=== PATIENT | female | born 1950 | race Caucasian/White ===

== ENCOUNTER → 2016-08-24 | Outpatient (CLI) | payer OTHER ==
[2016-08-24 17:07] LABS: ALT/SGPT 38 U/L (12-78); AST/SGOT 29 U/L (15-37); BLOOD UREA NITROGEN 15 mg/dl (7-18); BUN/CREATININE RATIO 15.4 (10-20); CALCIUM 10.2 mg/dl (8.5-10.1); CARBON DIOXIDE 31 mmol/L (21-32); CHLORIDE 106 mmol/L (98-107); CHOLESTEROL 166 mg/dl (0-200); CREATININE 0.95 mg/dl (0.60-1.20); GLUCOSE 88 mg/dl (70-99); SODIUM 144 mmol/L (136-145)
[2016-08-24 17:18] LABS: ALB/GLOB RATIO 1.1 (0.9-2); ALKALINE PHOSPHATASE 70 U/L (45-117); CHOLESTEROL/HDL RATIO 3.5; HDL CHOLESTEROL 48 mg/dl; LDL CHOLESTEROL CALCULATED 85 mg/dl; TRIGLYCERIDES 166 mg/dl (0-150); VERY LOW DENSITY LIPOPROT CALC 33 mg/dl
[2016-08-25 05:49] LABS: ESTIMATED AVERAGE GLUCOSE 123 mg/dl; HA1C FLAG Normal (Normal)
== END | disposition home or self-care (01) ==
LOC: C.LABBFT 11:40
PROVIDERS: ATTEND Internal Medicine
DX: Z00.00 Encounter for general adult medical examination without abnormal findings (principal); I10 Essential (primary) hypertension; E78.00 Pure hypercholesterolemia, unspecified; Z11.59 Encounter for screening for other viral diseases; R73.01 Impaired fasting glucose

== ENCOUNTER → 2016-12-26 | Outpatient (CLI) | payer OTHER ==
--- NOTE | 2016-12-26 12:24 | MAMMOGRAPHY REPORT ---
BILATERAL DIGITAL SCREENING MAMMOGRAM TOMOSYNTHESIS WITH CAD: 12/26/2016 CLINICAL HISTORY: Routine screening. Patient has no complaints. TECHNIQUE: Breast tomosynthesis in addition to standard 2D mammography was performed. Current study was also evaluated with a Computer Aided Detection (CAD) system. COMPARISON: Comparison is made to exams dated: 12/23/2015 mammogram, 12/17/2014 mammogram, 12/14/2013 ma mmogram, 12/04/2012 mammogram, 11/28/2011 mammogram, and 11/23/2010 mammogram - [facility]. BREAST COMPOSITION: There are scattered areas of fibroglandular density in both breasts. FINDINGS: No suspicious masses, calcifications, or areas of architectural distortion are noted in ei ther breast. There has been no significant interval change compared to prior exams. A few small circ umscribed benign-appearing masses are noted bilaterally, most prominent in the left breast, which are mildly fluctuating compared to prior exams and likely represent cysts. IMPRESSION: ACR BI-RADS CATEGORY 2: BENIGN There is no mammographic evidence of malignancy. A 1 year screening mammogram is recommended. The pa tient will receive written notification of the results. Approximately 10% of breast cancers are not detected with mammography. A negative mammographic report should not delay biopsy if a clinically suggestive mass is present. Karen Bazan M.D. /:12/26/2016 07:56:23 Home Care Consultant: Sendy Talley [facility] letter sent: Normal 1/2 BI-RADS Code: ACR BI-RADS Category 2: Benign
== END | disposition home or self-care (01) ==
LOC: C.MAMM 07:19
PROVIDERS: ATTEND Internal Medicine
DX: Z12.31 Encounter for screening mammogram for malignant neoplasm of breast (principal)

== ENCOUNTER → 2017-03-06 | Outpatient (CLI) | payer OTHER ==
[2017-03-06 17:43] LABS: BLOOD UREA NITROGEN 20 mg/dl (7-18); BUN/CREATININE RATIO 20.3 (10-20); CALCIUM 10.6 mg/dl (8.5-10.1); CARBON DIOXIDE 30 mmol/L (21-32); CHLORIDE 106 mmol/L (98-107); GLUCOSE 94 mg/dl (70-99); POTASSIUM 4.3 mmol/L (3.5-5.1); SODIUM 140 mmol/L (136-145)
[2017-03-07 05:56] LABS: ESTIMATED AVERAGE GLUCOSE 120 mg/dl; HA1C FLAG Normal (Normal)
== END | disposition home or self-care (01) ==
LOC: C.LABBFT 11:51
PROVIDERS: ATTEND Internal Medicine
DX: Z00.00 Encounter for general adult medical examination without abnormal findings (principal); I10 Essential (primary) hypertension; R73.01 Impaired fasting glucose

== ENCOUNTER → 2018-01-02 | Outpatient (CLI) | payer OTHER ==
--- NOTE | 2018-01-02 15:43 | MAMMOGRAPHY REPORT ---
BILATERAL DIGITAL SCREENING MAMMOGRAM TOMOSYNTHESIS WITH CAD: 01/02/2018 CLINICAL HISTORY: Routine screening. Patient has no complaints. TECHNIQUE: The study was acquired using full field digital technology and interpreted from soft copy. Breast tomosynthesis in addition to standard 2D mammography was performed. Current study was also ev aluated with a Computer Aided Detection (CAD) system. COMPARISON: Comparison is made to exams dated: 12/26/2016 mammogram, 12/23/2015 mammogram, 12/17/2014 mario mogram, 12/04/2012 mammogram, 11/28/2011 mammogram, and 11/23/2010 mammogram - [facility] er. BREAST COMPOSITION: There are scattered areas of fibroglandular density in both breasts. FINDINGS: No suspicious masses, calcifications, or areas of architectural distortion are noted in either breast . There has been no significant interval change compared to prior exams. IMPRESSION: ACR BI-RADS CATEGORY 1: NEGATIVE There is no mammographic evidence of malignancy. A 1 year screening mammogram is recommended.( [id number]) The patient will receive written notification of the results. Some breast cancers are not detected with mammography. A negative mammographic report should not jamarcus y biopsy if a clinically suggestive mass is present. Karen Bazan M.D. ah/:01/02/2018 07:41:21 Multimedia Manager: RT Ulysses(Kade)(M), [facility] letter sent: Normal 1/2 BI-RADS Code: ACR BI-RADS Category 1: Negative
== END | disposition home or self-care (01) ==
LOC: C.MAMM 07:26
PROVIDERS: ATTEND Internal Medicine
DX: Z12.31 Encounter for screening mammogram for malignant neoplasm of breast (principal)

== ENCOUNTER 2022-11-09 23:04 | Observation (INO) ==
[2022-11-10] MEDS ORDERED: KETOROLAC 30 MG/ML VIAL IV ONE (00:08)
[2022-11-10 00:30] LABS: Albumin Globulin Ratio 1.5 (0.9-2); Albumin Level 4.3 gm/dl (3.4-5.0); BUN Creatinine Ratio 19.3 (10-20); Bilirubin,Total 0.7 mg/dl (0.2-1.0); Calcium 10.8 mg/dl (8.6-10.3); Creatinine Clr Calc Pharmacy 61.1 ml/min; Est GFR (African American) 76.1 ml/min; Est GFR (Non-African American) 65.6 ml/min; Globulin 2.9 gm/dl (2.5-4.0); Potassium 3.4 mmol/L (3.5-5.1); Total Protein 7.2 gm/dl (6.0-8.3)
[2022-11-10 00:33] LABS: Basophils # (auto) 0.06 K/uL (0-0.2); Basophils % (auto) 0.7 %; Eosinophils # (auto) 0.83 K/uL (0-0.50); Hematocrit (blood only) 43.8 % (37.0-47.0); Hemoglobin 15.2 g/dl (12.0-16.0); Immature Granulocytes # (auto) 0.03 K/uL (0.01-0.20); Immature Granulocytes % (auto) 0.3 %; Lymphocytes # (auto) 2.83 K/uL (1.2-3.4); Lymphocytes % (auto) 30.7 %; Mean Corpuscular Hemoglobin 30.3 pg (25.0-34.0); Mean Corpuscular Hgb Conc 34.7 g/dL (32.0-36.0); Mean Corpuscular Volume 87.4 fL (80.0-100.0); Mean Platelet Volume 10.3 fL (9.4-12.4); Monocytes # (auto) 0.83 K/uL (0.11-0.59); Neutrophils # (auto) 4.64 K/uL (1.40-6.50); Neutrophils % (auto) 50.3 %; Platelet Count 240 K/uL (130-400); RDW Coefficient of Variation 12.9 % (11.5-14.5); RDW Standard Deviation 40.7 fL (36.4-46.3); Red Blood Count 5.01 M/uL (4.20-5.40); White Blood Count 9.22 K/ul (4.8-10.8)
[2022-11-10] MEDS ORDERED: ONDANSETRON INJ 2 MG/ML 2 ML VIAL IV STA ×2 (00:57→03:34)
[2022-11-10] MEDS ORDERED: HYDROmorphone INJ 1 MG/ML SYRINGE IV STA (01:29)
[2022-11-10] MEDS ORDERED: OPTIRAY 320 100ml IV ONE (01:42)
--- NOTE | 2022-11-10 02:04 | CT Scan Report ---
Exam(s): CT ABDOMEN + PELVIS With Contrast IV Amt: 94ML OF OPTIRAY 320 EXAM: CT Abdomen and Pelvis With Intravenous Contrast CLINICAL HISTORY: Reason for exam: llq/left hip pain. TECHNIQUE: Axial computed tomography images of the abdomen and pelvis with intravenous contrast. CTDI is 27.77 mGy and DLP is 1300.38 mGy-cm. Automated exposure control was utilized for the study. A dose lowering technique was utilized adhering to the principles of ALARA. CONTRAST: Patient received 94ML OF OPTIRAY 320 of IV contrast COMPARISON: No relevant prior studies available. FINDINGS: Lung bases: Unremarkable. No mass. No consolidation. ABDOMEN: Liver: Unremarkable. No mass. Gallbladder and bile ducts: Unremarkable. No calcified stones. No ductal dilation. Pancreas: Unremarkable. No mass. No ductal dilation. Spleen: Unremarkable. No splenomegaly. Adrenals: Unremarkable. No mass. Kidneys and ureters: Unremarkable. No solid mass. No hydronephrosis. Stomach and bowel: Unremarkable. No obstruction. No mucosal thickening. PELVIS: Appendix: No findings to suggest acute appendicitis. Bladder: Unremarkable. No mass. Reproductive: Prior hysterectomy. ABDOMEN and PELVIS: Intraperitoneal space: Unremarkable. No free air. No significant fluid collection. Bones/joints: Degenerative disease of the thoracolumbar spine. No acute fracture. No dislocation. Soft tissues: Unremarkable. Vasculature: There is diffuse atherosclerotic calcification of the aorta and its major branch vessels. No abdominal aortic aneurysm. Lymph nodes: Unremarkable. No enlarged lymph nodes. IMPRESSION: No acute findings in the abdomen or pelvis. Electronically signed by: Girish Melendez MD 11/10/22 02:03 AM
[2022-11-10] MEDS ORDERED: SODIUM CHLORIDE 0.9% 1000ML 1,000 ML IV ONE (02:57)
[2022-11-10] MEDS ORDERED: ONDANSETRON INJ 2 MG/ML 2 ML VIAL ONE (03:02)
--- NOTE | 2022-11-10 03:51 | Emergency Department Note ---
Impression & Plan Hip pain, left, Vomiting Discharged home with her ED Provider Note NAME: KALLIE PEREZ AGE: 72 SEX: F ARRIVES VIA: Walk-In INFORMANT: Patient and her ED PROVIDER(S): Amanda Diaz DO CHIEF COMPLAINT: Low back pain, left hip pain, lower abdominal pain PLAN: Disposition: Discharged home Condition: Good Outpatient prescription management: None Referral: Follow-up with Dr. Aly on Saturday if nausea persists MEDICAL DECISION MAKING: This is a 72-year-old female patient who presents to the emergency department with left hip pain and back pain. Patient describes low back pain and left hip pain over the past couple days with some associated nausea and vomiting today. Patient believes that she can remember straining her hip and back while leaning over a table earlier in the week when the pain started. She is unsure why she had the vomiting tonight. She had a similar episode of vomiting 3 nights ago after eating cherries. She believes these episodes of vomiting may be secondary to eating too many peppers and onions. CT scan of the abdomen/pelvis was negative according to stat rad. Physical exam reveals reproducible pain with palpation over the left ASIS and not specifically left lower quadrant abdominal pain. Patient was treated with IV analgesia here in the emergency department with resolution of her abdominal pain. Urinalysis was unremarkable. Laboratory studies were interpreted by me and revealed no leukocytosis. There was a stable H&H. Glucose was mildly elevated at 137. Electrolytes were unremarkable. Patient did have a couple episodes of vomiting here in the ER. She was treated with IV Zofran and IV Pepcid. The patient was placed in observation status at 2330 for intractable nausea and vomiting. During the time in observation, the patient was frequently reassessed and received IV normal saline, IV analgesia and IV antiemetics. On Final reasses sment the patient was finally feeling better and able to drink clear liquids and the patient will be discharged home with her at 0600. A total observation time of 6 hours and 30 minutes. Triage Nursing notes reviewed and agree with them. Additional history obtained from her who is at the bedside Vital Signs: reviewed and remarkable for no significant abnormalities Differential diagnosis: Septic joint, arthralgia, diverticulitis, inguinal hernia, colitis, cystitis ER treatment provided: Cardiac monitoring Twelve-lead EKG IV Toradol IV Zofran IV Dilaudid IV Pepcid IV normal saline bolus Diagnostics interpreted by me: ECG: Normal sinus rhythm at a rate of 64 with first-degree AV block. There is no ST segment elevation or signs of ischemia. There is no ectopy. Cardiac Monitoring: Normal sinus rhythm at a rate of 60 Laboratory studies: See below Imaging studies: As per stat rad CT scan of the abdomen/pelvis: See report HPI: 72/F arrives for evaluation of left hip pain/back pain and vomiting. Patient describes low back pain left pain over the past couple days with some associated nausea and vomiting today. Patient believes that she can remember straining her hip and back while leaning over table earlier in the week when the pain started. She became concerned tonight when she had these episodes of vomiting, although she had similar episodes of vomiting just 3 nights ago after eating cherries. The patient describes having homemade chili for dinner and some pudding as a snack. PAST MEDICAL HISTORY:See Below PAST SURGICAL HISTORY:See Below FAMILY HISTORY:See Below SOCIAL HISTORY:See Below HOME MEDICATIONS:See list ALLERGIES:See list VITALS:See Below PHYSICAL EXAMINATION: HEENT: Head - normocephalic and atraumatic Pupils are equal, round, and reactive to light. Extraocular eye muscles are intact, and sclera are anicteric. Nose - moist nasal mucosa without discharge. Mouth - moist buccal mucosa. Oropharynx is nonerythematous and there is no tonsillar exudate or edema noted. Neck: Supple; no cervical lymphadenopathy. Heart: Regular rate and rhythm. There is a normal S1 and S2 with no murmurs, clicks, or gallops appreciated. Lungs: Clear to auscultation bilaterally with no wheezes, rales, or rhonchi. Abdomen: Soft, completely nontender, nondistended, with good bowel sounds. There are no palpable pulsatile masses or hepatosplenomegaly. There is no guarding, rigidity, or rebound noted. Extremities: Exquisite pain/tenderness to palpation over the left ASIS and in the left inguinal canal. There was no obvious hernia on exam. Patient had pain with flexion at the left hip. Skin: warm and dry with good turgor and no rashes. ED COURSE: Times/Reassessments: 2330 patient was evaluated in room B6. A complete history and physical was performed. An order was placed for continuous cardiac monitoring. The patient was in a normal sinus rhythm at a rate of 72. Patient was given a dose of IV Toradol for the pain in her left hip. She went for a CT scan of the abdomen/pelvis as described above. Patient's pain was persistent and she was given a dose of IV Dilaudid and IV Zofran. Patient had persistent nausea and was given a second dose of IV Zofran along with some IV normal saline solution. She continued to have some nausea and vomiting and was given a dose of IV Pepcid. EKG was obtained. Patient was able to rest for period of time and upon awakening was feeling much better. Patient was given expectant management instructions and encouraged use Tylenol for persistent left hip pain. Of asked her to follow-up with her PCP-Dr. Aly. If symptoms worsen, she should return here to the ER. Amanda Diaz DO Past Med/Surg History Medical History (Updated 11/10/22 @ 06:42 by Amanda Diaz DO) Allergic rhinitis BPPV (benign paroxysmal positional vertigo) Hyperlipidemia Hypertension Impaired fasting glucose Vitamin D deficiency Surgical History S/P appendectomy S/P hysterectomy S/P rotator cuff repair S/P tubal ligation Family History Sister Colorectal cancer Diabetes Father Asthma Myocardial infarction Other Leukemia Lupus erythematosus Denies family history of Ovarian cancer Prostate cancer Breast cancer Social History (Updated 08/10/22 @ 10:08 by Luz Marina Batres LPN) Smoking Status: Former smoker Age Started Using Tobacco: 13; Age Quit Using Tobacco: 39; packs per day: 4; Cigarettes Per Day: 80; Second Hand Exposure: No; Do You Dip or Chew Tobacco: No; Hx Alcohol Use: No Hx Substance Use: No Preferred Language: Nepali marital status: Current Living Situation: Spouse current occupational status: retired Feels Safe at Home: Yes Diet: regular Diet Comment: Low sugar caffeine: Yes Physical Activity Frequency: Other Physical Activity Frequency Comment: Sometimes Seatbelt Use: always Sunscreen Use: Yes Assistive Devices: Denture - Upper, Denture - Lower and Glasses Allergies Allergies Allergy/AdvReac Type Severity Reaction Status Date / Time codeine Allergy Unknown Unknown Verified 02/09/22 09:56 oxycodone Allergy Unknown Unknown Verified 02/09/22 09:56 Home Meds Home Medications Medication Instructions Recorded Confirmed aspirin 81 mg tablet,delayed 81 mg PO DAILY 06/20/19 11/10/22 release (Monique Low Dose Aspirin) calcium carbonate 600 mg calcium 600 mg PO DAILY 11/10/22 11/10/22 (1,500 mg) tablet (Calcium) cholecalciferol (vitamin D3) 25 0 mcg PO DAILY 11/10/22 11/10/22 mcg (1,000 unit) capsule (Vitamin D3) Previous Rx's Medication Instructions Recorded atenolol 25 mg tablet 25 mg PO DAILY #90 tabs 05/09/22 hydrochlorothiazide 50 mg tablet 50 mg PO DAILY #90 tabs 05/09/22 montelukast 10 mg tablet 10 mg PO DAILY #90 tabs 05/09/22 (Singulair) simvastatin 40 mg tablet 40 mg PO QPM #90 tabs 05/09/22 Results & Data (ED) Vital Signs Vital Signs - 24 hr 11/09/22 23:06 11/10/22 00:20 11/10/22 00:22 Temperature 36.3 C L Temperature Source Temporal Artery Scan Pulse Rate 73 66 Pulse Rate [Apical] 69 Pulse Rate from SpO2 Sensor Pulse Rhythm Regular Respiratory Rate 20 22 Respiratory Effort / Characteristics Non-Labored Spontaneous Respiratory Depth Normal Blood Pressure 198/126 H Blood Pressure [Right Arm] 187/93 H Blood Pressure Mean 150 Blood Pressure Mean [Right Arm] 124 Blood Pressure Position [Right Arm] Semi-fowlers Pulse Oximetry 97 97 96 Oxygen Delivery Method Room Air Room Air Room Air Oxygen Flow Rate Sepsis Recent Fever Within 48 Hours No Sepsis New/Unexplained Change in Mental Status No Sepsis Action Taken by Nursing No Action Required 11/10/22 00:25 11/10/22 01:00 11/10/22 01:00 Temperature Temperature Source Pulse Rate 71 68 Pulse Rate [Apical] Pulse Rate from SpO2 Sensor 69 Pulse Rhythm Respiratory Rate 20 Respiratory Effort / Characteristics Respiratory Depth Blood Pressure 168/86 H Blood Pressure [Right Arm] Blood Pressure Mean 101 Blood Pressure Mean [Right Arm] Blood Pressure Position [Right Arm] Pulse Oximetry 98 Oxygen Delivery Method Room Air Oxygen Flow Rate Sepsis Recent Fever Within 48 Hours Sepsis New/Unexplained Change in Mental Status Sepsis Action Taken by Nursing 11/10/22 01:30 11/10/22 01:30 11/10/22 02:00 Temperature Temperature Source Pulse Rate 67 Pulse Rate [Apical] Pulse Rate from SpO2 Sensor 67 Pulse Rhythm Respiratory Rate 22 Respiratory Effort / Characteristics Respiratory Depth Blood Pressure 188/86 H 139/80 Blood Pressure [Right Arm] Blood Pressure Mean 126 97 Blood Pressure Mean [Right Arm] Blood Pressure Position [Right Arm] Pulse Oximetry 96 Oxygen Delivery Method Room Air Oxygen Flow Rate Sepsis Recent Fever Within 48 Hours Sepsis New/Unexplained Change in Mental Status Sepsis Action Taken by Nursing 11/10/22 02:00 11/10/22 04:19 11/10/22 02:30 Temperature Temperature Source Pulse Rate 66 60 Pulse Rate [Apical] Pulse Rate from SpO2 Sensor 67 Pulse Rhythm Respiratory Rate 13 Respiratory Effort / Characteristics Respiratory Depth Blood Pressure 132/66 Blood Pressure [Right Arm] Blood Pressure Mean 90 Blood Pressure Mean [Right Arm] Blood Pressure Position [Right Arm] Pulse Oximetry 98 Oxygen Delivery Method Room Air Oxygen Flow Rate Sepsis Recent Fever Within 48 Hours Sepsis New/Unexplained Change in Mental Status Sepsis Action Taken by Nursing 11/10/22 02:30 11/10/22 03:00 11/10/22 03:00 Temperature Temperature Source Pulse Rate 69 62 Pulse Rate [Apical] Pulse Rate from SpO2 Sensor 69 60 Pulse Rhythm Respiratory Rate 17 18 Respiratory Effort / Characteristics Respiratory Depth Blood Pressure 143/72 H Blood Pressure [Right Arm] Blood Pressure Mean 96 Blood Pressure Mean [Right Arm] Blood Pressure Position [Right Arm] Pulse Oximetry 93 94 Oxygen Delivery Method Room Air Nasal Cannula Oxygen Flow Rate 2 Sepsis Recent Fever Within 48 Hours Sepsis New/Unexplained Change in Mental Status Sepsis Action Taken by Nursing 11/10/22 04:00 11/10/22 04:00 11/10/22 05:00 Temperature Temperature Source Pulse Rate 62 Pulse Rate [Apical] Pulse Rate from SpO2 Sensor 58 L Pulse Rhythm Respiratory Rate 14 Respiratory Effort / Characteristics Respiratory Depth Blood Pressure 147/74 H 159/73 H Blood Pressure [Right Arm] Blood Pressure Mean 97 113 Blood Pressure Mean [Right Arm] Blood Pressure Position [Right Arm] Pulse Oximetry 98 Oxygen Delivery Method Nasal Cannula Oxygen Flow Rate 2 Sepsis Recent Fever Within 48 Hours Sepsis New/Unexplained Change in Mental Status Sepsis Action Taken by Nursing 11/10/22 05:00 11/10/22 05:30 11/10/22 05:30 Temperature Temperature Source Pulse Rate 73 57 L Pulse Rate [Apical] Pulse Rate from SpO2 Sensor 66 59 L Pulse Rhythm Respiratory Rate 14 19 Respiratory Effort / Characteristics Respiratory Depth Blood Pressure 137/86 Blood Pressure [Right Arm] Blood Pressure Mean 102 Blood Pressure Mean [Right Arm] Blood Pressure Position [Right Arm] Pulse Oximetry 94 98 Oxygen Delivery Method Nasal Cannula Nasal Cannula Oxygen Flow Rate 2 2 Sepsis Recent Fever Within 48 Hours Sepsis New/Unexplained Change in Mental Status Sepsis Action Taken by Nursing 11/10/22 06:30 11/10/22 06:30 Temperature Temperature Source Pulse Rate 59 L Pulse Rate [Apical] Pulse Rate from SpO2 Sensor 57 L Pulse Rhythm Respiratory Rate 16 Respiratory Effort / Characteristics Respiratory Depth Blood Pressure 152/89 H Blood Pressure [Right Arm] Blood Pressure Mean 118 Blood Pressure Mean [Right Arm] Blood Pressure Position [Right Arm] Pulse Oximetry 94 Oxygen Delivery Method Room Air Oxygen Flow Rate Sepsis Recent Fever Within 48 Hours Sepsis New/Unexplained Change in Mental Status Sepsis Action Taken by Nursing Laboratory Data 11/10/22 00:00 11/10/22 00:00 Lab Results 11/10/22 11/10/22 11/10/22 Range/Units 00:00 00:00 00:00 WBC 9.22 (4.8-10.8) K/ul RBC 5.01 (4.20-5.40) M/uL Hgb 15.2 (12.0-16.0) g/dl Hct 43.8 (37.0-47.0) % MCV 87.4 (80.0-100.0) fL MCH 30.3 (25.0-34.0) pg MCHC 34.7 (32.0-36.0) g/dL RDW Std Deviation 40.7 (36.4-46.3) fL RDW Coeff of [place] 12.9 (11.5-14.5) % Plt Count 240 (130-400) K/uL MPV 10.3 (9.4-12.4) fL Immature Gran % (Auto) 0.3 % Neut % (Auto) 50.3 % Lymph % (Auto) 30.7 % [place] % (Auto) 9.0 % Eos % (Auto) 9.0 % Baso % (Auto) 0.7 % Neut # (Auto) 4.64 (1.40-6.50) K/uL Lymph # (Auto) 2.83 (1.2-3.4) K/uL [place] # (Auto) 0.83 H (0.11-0.59) K/uL Eos # (Auto) 0.83 H (0-0.50) K/uL Baso # (Auto) 0.06 (0-0.2) K/uL Immature Gran # (Auto) 0.03 (0.01-0.20) K/uL ESR 14 (0-30) mm/hr Sodium 136 (136-145) mmol/L Potassium 3.4 L (3.5-5.1) mmol/L Chloride 99 (98-107) mmol/L Carbon Dioxide 30 (21-32) mmol/L Anion Gap 7 (3-11) BUN 17 (6-23) mg/dl Creatinine 0.88 (0.6-1.2) mg/dl Est Cr Clr Drug Dosing 61.1 ml/min Est GFR ( Amer) 76.1 ml/min Est GFR (Non-Af Amer) 65.6 ml/min BUN/Creatinine Ratio 19.3 (10-20) Glucose 137 H (70-99(Fasting)) mg/dl Calcium 10.8 H (8.6-10.3) mg/dl Total Bilirubin 0.7 (0.2-1.0) mg/dl AST 23 (13-39) U/L ALT 23 (7-52) U/L Alkaline Phosphatase 60 (34-104) U/L Total Protein 7.2 (6.0-8.3) gm/dl Albumin 4.3 (3.4-5.0) gm/dl Globulin 2.9 (2.5-4.0) gm/dl Albumin/Globulin Ratio 1.5 (0.9-2) Lipase 37 (11-82) U/L Urine Color Urine Appearance (Clear) Urine pH (4.5-7.5) Ur Specific [place] (1.000-1.030) Urine Protein (Negative) Urine Glucose (UA) (Negative) Urine Ketones (Negative) Urine Blood (Negative) Urine Nitrite (Negative) Urine Bilirubin (Negative) Urine Urobilinogen (Negative) Ur Leukocyte Esterase (Negative) 11/10/22 Range/Units 04:11 WBC (4.8-10.8) K/ul RBC (4.20-5.40) M/uL Hgb (12.0-16.0) g/dl Hct (37.0-47.0) % MCV (80.0-100.0) fL MCH (25.0-34.0) pg MCHC (32.0-36.0) g/dL RDW Std Deviation (36.4-46.3) fL RDW Coeff of [place] (11.5-14.5) % Plt Count (130-400) K/uL MPV (9.4-12.4) fL Immature Gran % (Auto) % Neut % (Auto) % Lymph % (Auto) % [place] % (Auto) % Eos % (Auto) % Baso % (Auto) % Neut # (Auto) (1.40-6.50) K/uL Lymph # (Auto) (1.2-3.4) K/uL [place] # (Auto) (0.11-0.59) K/uL Eos # (Auto) (0-0.50) K/uL Baso # (Auto) (0-0.2) K/uL Immature Gran # (Auto) (0.01-0.20) K/uL ESR (0-30) mm/hr Sodium (136-145) mmol/L Potassium (3.5-5.1) mmol/L Chloride (98-107) mmol/L Carbon Dioxide (21-32) mmol/L Anion Gap (3-11) BUN (6-23) mg/dl Creatinine (0.6-1.2) mg/dl Est Cr Clr Drug Dosing ml/min Est GFR ( Amer) ml/min Est GFR (Non-Af Amer) ml/min BUN/Creatinine Ratio (10-20) Glucose (70-99(Fasting)) mg/dl Calcium (8.6-10.3) mg/dl Total Bilirubin (0.2-1.0) mg/dl AST (13-39) U/L ALT (7-52) U/L Alkaline Phosphatase (34-104) U/L Total Protein (6.0-8.3) gm/dl Albumin (3.4-5.0) gm/dl Globulin (2.5-4.0) gm/dl Albumin/Globulin Ratio (0.9-2) Lipase (11-82) U/L Urine Color Yellow Urine Appearance Clear (Clear) Urine pH 5.5 (4.5-7.5) Ur Specific [place] > 1.045 H (1.000-1.030) Urine Protein Negative (Negative) Urine Glucose (UA) Negative (Negative) Urine Ketones Negative (Negative) Urine Blood Negative (Negative) Urine Nitrite Negative (Negative) Urine Bilirubin Negative (Negative) Urine Urobilinogen Negative (Negative) Ur Leukocyte Esterase Negative (Negative) Administered Medications Discontinued Medications Hydromorphone HCl (Hydromorphone Inj 1 Mg/Ml Syringe) 1 mg IV NOW STA Stop: 11/10/22 01:30 Last Admin: 11/10/22 01:31 Dose: 1 mg Documented By: Sodium Chloride (Nss 1000ml) 1,000 mls @ 999 mls/hr IV .Q1H1M ONE Stop: 11/10/22 03:57 Last Infusion: 11/10/22 05:01 Dose: 0 mls/hr Documented By: Admin: 11/10/22 03:01 Dose: 999 mls/hr Documented By: Famotidine (Pepcid 20mg Iv Push) 20 mg in 5 mls @ 2.5 mls/min IV NOW STA Stop: 11/10/22 05:49 Last Admin: 11/10/22 05:56 Dose: 2.5 mls/min Documented By: Ioversol (Optiray 320 100ml) 94 ml IV ONCE ONE Stop: 11/10/22 01:43 Last Admin: 11/10/22 01:43 Dose: 94 ml Documented By: IRAJ Ketorolac Tromethamine (Ketorolac 30 Mg/Ml Vial) 30 mg IV NOW ONE Stop: 11/10/22 00:09 Last Admin: 11/10/22 00:13 Dose: 30 mg Documented By: Ondansetron HCl (Ondansetron Inj 2 Mg/Ml 2 Ml Vial) 4 mg IV NOW STA Stop: 11/10/22 00:58 Last Admin: 11/10/22 00:59 Dose: 4 mg Documented By: Ondansetron HCl (Ondansetron Inj 2 Mg/Ml 2 Ml Vial) Confirm Administered Dose 4 mg .ROUTE .STK-MED ONE Stop: 11/10/22 03:03 Last Admin: 11/10/22 03:03 Dose: 4 mg Documented By: Ondansetron HCl (Ondansetron Inj 2 Mg/Ml 2 Ml Vial) 4 mg IV NOW STA Stop: 11/10/22 03:35 Last Admin: 11/10/22 03:35 Dose: Not Given Documented By: Imaging Data Radiologist's Impression: Abdomen/Pelvis CT 11/10/22 00:07 Exam(s): CT ABDOMEN + PELVIS With Contrast IV Amt: 94ML OF OPTIRAY 320 EXAM: CT Abdomen and Pelvis With Intravenous Contrast CLINICAL HISTORY: Reason for exam: llq/left hip pain. TECHNIQUE: Axial computed tomography images of the abdomen and pelvis with intravenous contrast. CTDI is 27.77 mGy and DLP is 1300.38 mGy-cm. Automated exposure control was utilized for the study. A dose lowering technique was utilized adhering to the principles of ALARA. CONTRAST: Patient received 94ML OF OPTIRAY 320 of IV contrast COMPARISON: No relevant prior studies available. FINDINGS: Lung bases: Unremarkable. No mass. No consolidation. ABDOMEN: Liver: Unremarkable. No mass. Gallbladder and bile ducts: Unremarkable. No calcified stones. No ductal dilation. Pancreas: Unremarkable. No mass. No ductal dilation. Spleen: Unremarkable. No splenomegaly. Adrenals: Unremarkable. No mass. Kidneys and ureters: Unremarkable. No solid mass. No hydronephrosis. Stomach and bowel: Unremarkable. No obstruction. No mucosal thickening. PELVIS: Appendix: No findings to suggest acute appendicitis. Bladder: Unremarkable. No mass. Reproductive: Prior hysterectomy. ABDOMEN and PELVIS: Intraperitoneal space: Unremarkable. No free air. No significant fluid collection. Bones/joints: Degenerative disease of the thoracolumbar spine. No acute fracture. No dislocation. Soft tissues: Unremarkable. Vasculature: There is diffuse atherosclerotic calcification of the aorta and its major branch vessels. No abdominal aortic aneurysm. Lymph nodes: Unremarkable. No enlarged lymph nodes. IMPRESSION: No acute findings in the abdomen or pelvis. Electronically signed by: Girish Melendez MD 11/10/22 02:03 AM Discharge Plan Visit Data Chief Complaint: Hip Pain Stated Complaint: HIP PAIN,NAUSEA, LEG PAIN,ABDOMINAL PAIN, ED Provider: Amanda Diaz Discharge Problem: Hip pain, left, Vomiting Discharge Instructions [place]/Other Patient Handouts: ED Vomiting (Adult) Activity Restrictions/Additional Instructions: Rest - take tylenol for hip pain Take a bland diet for the next 24-48 hours Return to the ER for any worsening symptoms Forms Stand Alone Forms: [facility] Prescriptions Prescriptions: No Action montelukast [Singulair] 10 mg tablet 10 mg PO DAILY Qty: 90 3RF atenolol 25 mg tablet 25 mg PO DAILY Qty: 90 3RF hydrochlorothiazide 50 mg tablet 50 mg PO DAILY Qty: 90 3RF simvastatin 40 mg tablet 40 mg PO QPM Qty: 90 3RF aspirin [Monique Low Dose Aspirin] 81 mg Tablet,Delayed Release (Dr/Ec) 81 mg PO DAILY calcium carbonate [Calcium 600] 600 mg calcium (1,500 mg) Tablet 600 mg PO DAILY cholecalciferol (vitamin D3) [Vitamin D3] 25 mcg (1,000 unit) Capsule 0 mcg PO DAILY Referrals Referrals: Trisha Aly MD [Primary Care Provider] - Vomiting Qualifiers: Vomiting type: unspecified Nausea presence: with nausea Qualified Code(s): R11.2 - Nausea with vomiting, unspecified
[2022-11-10 04:23] LABS: Appearance Urine Clear (Clear); Bilirubin Urine Negative (Negative); Blood Urine Negative (Negative); Color Urine Yellow; Glucose Urine UA Negative (Negative); Ketones Urine Negative (Negative); Leukocyte Esterase Urine Negative (Negative); Nitrite Urine Negative (Negative); Protein Urine Negative (Negative); Specific Gravity Urine > 1.045 (1.000-1.030); Urobilinogen Urine Negative (Negative); pH Urine 5.5 (4.5-7.5)
[2022-11-10] MEDS ORDERED: FAMOTIDINE 20MG IV PUSH 20 MG/5 ML SYR IV STA (05:48)
[2022-11-10] MEDS ORDERED: PROMETHAZINE 6.25 MG/50.25 ML BAG IV STA (07:26)
[2022-11-10] MEDS: SODIUM CHLORIDE 0.9% 500 ML IV SCH ×2 (07:53→14:23)
--- NOTE | 2022-11-10 08:09 | History & Physical Report ---
Date of Service November 10, 2022 Assessment & Plan (1) Hip pain, left: Plan: - await Xray left hip - Tylenol IV (since vomiting) q8H pen pain - Voltaren gel to left hip - Avoid any further Dilaudid due to somnolence after dosing earlier - PT/OT evaluation Tick bite x 2 - 2 weeks ago will get Lyme titre no fevers, rash (2) Vomiting: Plan: - will repeat labs in the AM - will avoid any further phenergan - Zofran 4mg IV q6H -continue pepcid IV bid in case with gastritis -continue IVFs (3) Vitamin D deficiency: Plan: - Chronic - Continue vitamin d supplementation (4) Impaired fasting glucose: Plan: - continue to monitor - Last HGBA1C was 6.2 in July (5) BPPV (benign paroxysmal positional vertigo): Plan: Chronic and stable no symptoms currently (6) Allergic rhinitis: Plan: chronic and stable continue singular daily Takes OTC nasal spray and antihistamine as needed (7) Hyperlipidemia: Plan: Chronic and stable Continue Simvastatin (8) Hypertension: Plan: Chronic and stable Continue Atenolol Hold HCTZ (9) Hypercalcemia: Plan: Evidence of hyprcalcemia dating back to 2017 - Will hold HCTZ and oral calcium supplementation - Will continue to monitor - Last TSH 2020 2.6 repeat with AM labs - PTH July 2022 81.8 - Continue vitamin D supplementation Plan Admit as observation to med surg await repeat labs and xray IVFs and clear liquid diet SCDs and daily ASA History of Present Illness Chief Complaint: Left hip pain and nausea and vomiting Primary Care Provider: Trisha Aly MD Sharon Vigil is a 72 year old female with a past medical history of HTN, HLD, allergic rhinitis and BPPV who presented to the ER today with complaints of left hip and back pain and nausea and vomiting. Patient states she first noticed the low back and hip pain about a week ago when she leaned over a table and felt the pain. She denies any other injury or trauma. She also tells me that 2 weeks ago she had 2 ticks on her but her was able to get them off of her right away and they were not engorged. She denies any rashes, fevers, chills, hematemesis, changes in her bowels, abdominal pain, hematuria, chest pain, dyspnea, cough, congestion. She had an episode of vomiting at 3AM on Saturday that awaoke her from sleep. She denies any ill contacts. She then had nausea and bilious vomiting today x several episodes. She was treated with Zofran and Toradol in the ER without relief and then given Phenergan and Dilaudid and her pain resolved. She was wanting to be discharged home and was about to leave when she had another bilous emesis and decided to stay for admission. She has never had anything like this in the past. She has never had a kidney stone or gross hematuria in the past. She has had mild hypercalcemia dating back to 2016. PTH level in July was 81.8. CTAP here was read as negative. Possibly a tiny kidney stone on the left and will have day time radiologist reread the scan. She denies any association of the pain and N/V to eating, but states the back and hip pain are reproducible with movements and also palpation at times. Dr Spencer Chung re read the CTAP and stated that patient has pelvic calcifications and phleboliths with no evidence of any kidney stones. When I first entered the room, patient was sleeping and had a hard time awakening her and she was disoriented and slightly confused for a few minutes but neurologically intact. She was given Dilaudid and Phenergan earlier. Allergies Allergy/AdvReac Type Severity Reaction Status Date / Time codeine Allergy Unknown Unknown Verified 02/09/22 09:56 oxycodone Allergy Unknown Unknown Verified 02/09/22 09:56 Home Medications Medication Instructions Recorded Confirmed Type aspirin 81 mg tablet,delayed 81 mg PO DAILY 06/20/19 11/10/22 History release (Monique Low Dose Aspirin) atenolol 25 mg tablet 25 mg PO DAILY #90 tabs 05/09/22 11/10/22 Rx hydrochlorothiazide 50 mg tablet 50 mg PO DAILY #90 tabs 05/09/22 11/10/22 Rx montelukast 10 mg tablet 10 mg PO DAILY #90 tabs 05/09/22 11/10/22 Rx (Singulair) simvastatin 40 mg tablet 40 mg PO QPM #90 tabs 05/09/22 11/10/22 Rx calcium carbonate 600 mg calcium 600 mg PO DAILY 11/10/22 11/10/22 History (1,500 mg) tablet (Calcium) cholecalciferol (vitamin D3) 25 0 mcg PO DAILY 11/10/22 11/10/22 History mcg (1,000 unit) capsule (Vitamin D3) Past Med/Surg History Medical History Allergic rhinitis BPPV (benign paroxysmal positional vertigo) Hyperlipidemia Hypertension Impaired fasting glucose Vitamin D deficiency Surgical History S/P appendectomy S/P hysterectomy S/P rotator cuff repair S/P tubal ligation Family History Sister Colorectal cancer Diabetes Father Asthma Myocardial infarction Other Leukemia Lupus erythematosus Denies family history of Ovarian cancer Prostate cancer Breast cancer Social History Smoking Status: Former smoker Age Started Using Tobacco: 13; Age Quit Using Tobacco: 39; packs per day: 4; Cigarettes Per Day: 80; Second Hand Exposure: No; Do You Dip or Chew Tobacco: No; Hx Alcohol Use: No Hx Substance Use: No Preferred Language: Macedonian Communication Ability: Effective Inspector Paper Products Required: No Beliefs That Will Affect Care: None marital status: Current Living Situation: Spouse current occupational status: retired Other Information That Helps Us Care for You: No Feels Safe at Home: Yes Safety Concerns: Feels Safe At This Time Diet: regular Diet Comment: Low sugar caffeine: Yes Physical Activity Frequency: Other Physical Activity Frequency Comment: Sometimes Seatbelt Use: always Sunscreen Use: Yes Assistive Devices: Cane, Walker and Wheelchair Review of Systems Constitutional: + fatigue and + anorexia; no fever, no chills and no weight loss Ear, Nose, Mouth, Throat: + snoring; no dizziness, no nasal congestion, no nasal obstruction, no sore throat and no dysphagia Respiratory: no cough, no chest congestion, no dyspnea and no hemoptysis Cardiovascular: no chest pain, no dyspnea, no lightheadedness and no calf pain Gastrointestinal: + nausea and + vomiting; no abdominal pain, no coffee ground emesis, no dysphagia, no change in bowel habits, no diarrhea/loose stools and no blood in stools Genitourinary: no dysuria, no urinary frequency, no urinary hesitancy, no urinary urgency and no hematuria Musculoskeletal: + back pain left hip discomfort Integumentary: no rash, no lesions and no new lesions Neurologic: no falls, no paresthesia, no tremor(s), no seizure-like activity and no syncope Endocrine: + fatigue; no polydipsia, no polyphagia and no polyuria Physical Exam Constitutional: WD/WN, vitals as above Neck: trachea midline, no thyromegaly Respiratory: normal respiratory effort, lungs clear to auscultation Cardiovascular: RRR, no murmur, no edema Extremities: normal capillary refill and + edema; no calf tenderness Gastrointestinal (Abdomen): normal bowel sounds, soft, nontender, no hepatosplenomegaly Musculoskeletal: Pain to palpation left trochanter No CVA tenderness Skin: no rashes, warm and dry Neurologic: patellar DTR's 2+ bilat, sensation intact and PERRL, EOMI, accommodation nl, no face palsy, no dysarthria Cranial Nerves: sense of smell intact, PERRL, normal accommodation, EOM intact bilaterally, normal facial strength, tongue midline, normal gag reflex, normal hearing, able to rotate head bilaterally, able to elevate shoulders bilaterally, no nystagmus and symmetric palate elevation Psychiatric: A+Ox3, euthymic affect Results & Data Results & Data Vital Signs (Past 12 Hours) Vital Signs Temp Pulse Pulse Resp BP BP Pulse Ox 11/10/22 07:00 11/10/22 06:53 155/80 H 11/10/22 06:53 56 L 16 94 11/10/22 06:30 59 L 16 94 11/10/22 06:30 152/89 H 11/10/22 05:30 57 L 19 98 11/10/22 05:30 137/86 11/10/22 05:00 73 14 94 11/10/22 05:00 159/73 H 11/10/22 04:00 62 14 98 11/10/22 04:00 147/74 H 11/10/22 03:00 62 18 94 11/10/22 03:00 143/72 H 11/10/22 02:30 69 17 93 11/10/22 02:30 132/66 11/10/22 04:19 60 11/10/22 02:00 66 13 98 11/10/22 02:00 139/80 11/10/22 01:30 67 22 96 11/10/22 01:30 188/86 H 11/10/22 01:00 68 20 98 11/10/22 01:00 168/86 H 11/10/22 00:25 71 11/10/22 00:22 69 22 187/93 H 96 11/10/22 00:20 66 97 11/09/22 23:06 36.3 C L 73 20 198/126 H 97 O2 Del Method O2 Flow Rate 11/10/22 07:00 Room Air 11/10/22 06:53 11/10/22 06:53 Room Air 11/10/22 06:30 Room Air 11/10/22 06:30 11/10/22 05:30 Nasal Cannula 2 11/10/22 05:30 11/10/22 05:00 Nasal Cannula 2 11/10/22 05:00 11/10/22 04:00 Nasal Cannula 2 11/10/22 04:00 11/10/22 03:00 Nasal Cannula 2 11/10/22 03:00 11/10/22 02:30 Room Air 11/10/22 02:30 11/10/22 04:19 11/10/22 02:00 Room Air 11/10/22 02:00 11/10/22 01:30 Room Air 11/10/22 01:30 11/10/22 01:00 Room Air 11/10/22 01:00 11/10/22 00:25 11/10/22 00:22 Room Air 11/10/22 00:20 Room Air 11/09/22 23:06 Room Air Laboratory Results Abnormal lab results 11/10/22 11/10/22 11/10/22 Range/Units 00:00 00:00 04:11 Christian # (Auto) 0.83 H (0.11-0.59) K/uL Eos # (Auto) 0.83 H (0-0.50) K/uL Potassium 3.4 L (3.5-5.1) mmol/L Glucose 137 H (70-99(Fasting)) mg/dl Calcium 10.8 H (8.6-10.3) mg/dl Ur Specific Mobile > 1.045 H (1.000-1.030) Diagnostic Findings Abdomen/Pelvis CT 11/10/22 00:07 Exam(s): CT ABDOMEN + PELVIS With Contrast IV Amt: 94ML OF OPTIRAY 320 EXAM: CT Abdomen and Pelvis With Intravenous Contrast CLINICAL HISTORY: Reason for exam: llq/left hip pain. TECHNIQUE: Axial computed tomography images of the abdomen and pelvis with intravenous contrast. CTDI is 27.77 mGy and DLP is 1300.38 mGy-cm. Automated exposure control was utilized for the study. A dose lowering technique was utilized adhering to the principles of ALARA. CONTRAST: Patient received 94ML OF OPTIRAY 320 of IV contrast COMPARISON: No relevant prior studies available. FINDINGS: Lung bases: Unremarkable. No mass. No consolidation. ABDOMEN: Liver: Unremarkable. No mass. Gallbladder and bile ducts: Unremarkable. No calcified stones. No ductal dilation. Pancreas: Unremarkable. No mass. No ductal dilation. Spleen: Unremarkable. No splenomegaly. Adrenals: Unremarkable. No mass. Kidneys and ureters: Unremarkable. No solid mass. No hydronephrosis. Stomach and bowel: Unremarkable. No obstruction. No mucosal thickening. PELVIS: Appendix: No findings to suggest acute appendicitis. Bladder: Unremarkable. No mass. Reproductive: Prior hysterectomy. ABDOMEN and PELVIS: Intraperitoneal space: Unremarkable. No free air. No significant fluid collection. Bones/joints: Degenerative disease of the thoracolumbar spine. No acute fracture. No dislocation. Soft tissues: Unremarkable. Vasculature: There is diffuse atherosclerotic calcification of the aorta and its major branch vessels. No abdominal aortic aneurysm. Lymph nodes: Unremarkable. No enlarged lymph nodes. IMPRESSION: No acute findings in the abdomen or pelvis. Electronically signed by: Girish Melendez MD 11/10/22 02:03 AM ECG Additional Comments: Sinus rhythm with 1st degree AV block, rate 64, no ischemic changes Code Status & VTE Plan VTE Prophylaxis Plan VTE Prophylaxis will be ordered: Yes Supervising Physician Co-Signing Physician Notes PA Supervision Note: I personally saw and examined the patient. I verified all guerrero points and agree with SASCHA Paulson with the following exceptions and/or additions: S-Pt presents with left sided hip and left rib pain since twisting to get something about 5 days ago. She also started having nausea and vomiting intermittently with frequent belching about 5 days ago after eating many days in a row of peppers and onions with sausage. Had persistent N/V in ER. Denies he artburn or abdominal pain. Pain improved with dialudid but made her very drowsy in ER. History and ROS otherwise reviewed as above O- Vitals reviewed Gen: [AAOx3, NAD] HEENT: [anicteric sclerae, EOMI] CV: [RRR no mgr nl S1S2] Pulm: [CTAB no wcr] Abd: [+BS soft NT ND no masses or hernias, +TTP over lef posterior ribs at approx 7-8th ribs] Ext: [no edema, +TTP over left greater trochanter] Skin: [no rashes, warm/dry, no ecchymosis] Neuro: [full strength throughout] CBC, CMP, CT abd/pelvis, and ECG reviewed A/P-72 yo female here with left rib pain, left hip pain, and N/V x 5 days. Likely gastritis, possibly from onions/peppers/sausage given belching and intermittent nausea, now improvement with pepcid-continue pepcid, IVFs, advance diet as tolerated Left rib TTP--> check left rib series and CXR, apply lidocaine patch Left greater trochanteric bursitis--> start voltaren gel Likely dc to home tomorrow if improving PG Care Time/CCT Total # of Minutes Spent Total Time Spent with Patient: Total time spent is greater than 50% in coordination of care (as documented) at patient's floor/unit and/or counseling patient: Coding Level of Care Code 58527 INT INP/OBS CARE 3/75MIN Diagnoses Hip pain, left M25.552 Vomiting R11.2 Nausea presence: with nausea Vomiting type: unspecified Vitamin D deficiency E55.9 Impaired fasting glucose R73.01 BPPV (benign paroxysmal positional vertigo) H81.10 Allergic rhinitis J30.9 Hyperlipidemia E78.5 Hypertension I10 Hypercalcemia E83.52 (2) Vomiting Nausea presence: with nausea Vomiting type: unspecified Qualified Code(s): R11.2 - Nausea with vomiting, unspecified
[2022-11-10 10:40] LABS: Lyme Ab IgG w/WB Rflx Negative (Negative); Lyme Ab IgM w/WB Rflx Negative (Negative)
[2022-11-10] MEDS ORDERED: ACETAMINOPHEN 1,000 MG/100 ML VIAL IV PRN (13:53)
[2022-11-10] MEDS ORDERED: ONDANSETRON INJ 2 MG/ML 2 ML VIAL IV PRN (13:53)
[2022-11-10] MEDS ORDERED: KETOROLAC TROMETHAMINE 15 MG/ML VIAL IV PRN (14:22)
[2022-11-10] MEDS: SODIUM CHLORIDE 0.9% 1000ML 1,000 ML IV SCH ×2 (14:25→22:45)
[2022-11-10] MEDS ORDERED: DICLOFENAC SOD 1% GEL 100 GM TUBE EXT SCH (14:30)
--- NOTE | 2022-11-10 15:03 | XRay Report ---
XR hip LT min 2V CLINICAL HISTORY: left hip pain TECHNIQUE: 2 views of the left hip were obtained. Comparison: None available at the time of this dictation. FINDINGS: There is no evidence of an acute fracture. Degenerative changes are seen in the hip joint. No soft ti ssue abnormality is seen. IMPRESSION: No evidence of acute osseous injury. ACT 112: Negative or not required by law. Electronically signed by: Spencer Chung M.D. 11/10/2022 3:02 PM
[2022-11-10] MEDS ORDERED: ATENOLOL 25 MG TABLET PO ONE (16:45)
[2022-11-10] MEDS: DICLOFENAC SOD 1% GEL 100 GM TUBE EXT SCH ×2 (16:58→20:07)
--- NOTE | 2022-11-10 17:54 | Electrocardiogram Report ---
Test Reason : Blood Pressure : / mmHG Vent. Rate : 064 BPM Atrial Rate : 064 BPM P-R Int : 230 ms QRS Dur : 078 ms QT Int : 434 ms P-R-T Axes : 059 015 053 degrees QTc Int : 447 ms Poor data quality, interpretation may be adversely affected Sinus rhythm with 1st degree A-V block Low voltage QRS Cannot rule out Anterior infarct (cited on or before 10-FEB-2015) Abnormal ECG When compared with ECG of 10-FEB-2015 11:58, Questionable change in initial forces of Anterior leads Confirmed by Quinton Yan ([id number]) on 11/10/2022 5:53:38 PM Referred By: REFERRED SELF Confirmed By:Quinton Yan
[2022-11-10] MEDS ORDERED: LIDOCAINE 5% 1 PATCH TD STA (19:26)
--- NOTE | 2022-11-10 20:22 | XRay Report ---
XR ribs LT min 2V w CXR1V CLINICAL HISTORY: left sided rib pain around 7th rib posterior TECHNIQUE: 3 views of the left ribs were obtained. Single frontal view of the chest was obtained. Comparison: Comparison is made to chest radiograph 06/20/2019 FINDINGS: No fractures are seen. The chest wall and soft tissues are normal. The cardiomediastinal silhouette is normal. The lungs are clear. No evidence of pleural effusion or p neumothorax. IMPRESSION: No evidence of acute fracture or other acute abnormalities in the visualized portions of the chest. ACT 112: Negative or not required by law. Electronically signed by: Spencer Chung M.D. 11/10/2022 8:20 PM
[2022-11-10] MEDS: FAMOTIDINE 20 MG in SYRINGE 3 ML IV SCH (20:36)
[2022-11-10] MEDS ORDERED: SIMVASTATIN 40 MG TAB PO SCH (21:00)
[2022-11-11 06:27] LABS: Hematocrit (blood only) 38.4 % (37.0-47.0); Mean Corpuscular Hemoglobin 30.1 pg (25.0-34.0); Mean Corpuscular Hgb Conc 33.9 g/dL (32.0-36.0); Mean Corpuscular Volume 88.9 fL (80.0-100.0); Mean Platelet Volume 10.4 fL (9.4-12.4); Platelet Count 197 K/uL (130-400); RDW Standard Deviation 42.2 fL (36.4-46.3); Red Blood Count 4.32 M/uL (4.20-5.40); White Blood Count 7.58 K/ul (4.8-10.8)
[2022-11-11 06:48] LABS: BUN Creatinine Ratio 17.3 (10-20); Calcium 9.2 mg/dl (8.6-10.3); Creatinine Clr Calc Pharmacy 66.4 ml/min; Est GFR (African American) 84.1 ml/min; Est GFR (Non-African American) 72.6 ml/min; Magnesium 1.9 mg/dl (1.7-2.4); Potassium 3.8 mmol/L (3.5-5.1)
[2022-11-11] MEDS: FAMOTIDINE 20 MG in SYRINGE 3 ML IV SCH (08:31)
[2022-11-11] MEDS: DICLOFENAC SOD 1% GEL 100 GM TUBE EXT SCH (08:32)
[2022-11-11] MEDS ORDERED: MONTELUKAST SODIUM 10 MG TABLET PO SCH (09:00)
[2022-11-11] MEDS ORDERED: ATENOLOL 25 MG TABLET PO SCH (09:00)
[2022-11-11] MEDS ORDERED: ASPIRIN 81 MG ECTAB PO SCH (09:00)
[2022-11-11] MEDS ORDERED: CHOLECALCIFEROL 1,000 UNITS 25 MCG TAB PO SCH (09:00)
--- NOTE | 2022-11-11 12:33 | Discharge Summary ---
Discharge Summary Date of Service November 11, 2022 Notes For Next Care Provider Medication Changes From Visit Discontinue calcium carbonate Start famotidine 20mg po bid x 1 month Started Voltaren gel qid to left hip Admission HPI Per Admitting Provider Sharon Vigil is a 72 year old female with a past medical history of HTN, HLD, allergic rhinitis and BPPV who presented to the ER today with complaints of left hip and back pain and nausea and vomiting. Patient states she first noticed the low back and hip pain about a week ago when she leaned over a table and felt the pain. She denies any other injury or trauma. She also tells me that 2 weeks ago she had 2 ticks on her but her was able to get them off of her right away and they were not engorged. She denies any rashes, fevers, chills, hematemesis, changes in her bowels, abdominal pain, hematuria, chest pain, dyspnea, cough, congestion. She had an episode of vomiting at 3AM on Saturday that awaoke her from sleep. She denies any ill contacts. She then had nausea and bilious vomiting today x several episodes. She was treated with Zofran and Toradol in the ER without relief and then given Phenergan and Dilaudid and her pain resolved. She was wanting to be discharged home and was about to leave when she had another bilous emesis and decided to stay for admission. She has never had anything like this in the past. She has never had a kidney stone or gross hematuria in the past. She has had mild hypercalcemia dating back to 2017. PTH level in July was 81.8. CTAP here was read as negative. Possibly a tiny kidney stone on the left and will have day time radiologist reread the scan. She denies any association of the pain and N/V to eating, but states the back and hip pain are reproducible with movements and also palpation at times. Dr Spencer Chung re read the CTAP and stated that patient has pelvic calcifications and phleboliths with no evidence of any kidney stones. When I first entered the room, patient was sleeping and had a hard time awakening her and she was disoriented and slightly confused for a few minutes but neurologically intact. She was given Dilaudid and Phenergan earlier. Principal Dx & Hospital Course #1 = Principal Diagnosis (1) Hip pain, left: - Xray left hip with OA, Lyme titer neg (had tick bite 2 weeks ago, but no fevers or bullseye) -Exam consistent with greater trochanteric bursitis - Voltaren gel to left hip as well as ice applied and had improvement -advised stretches as instructed by PT and f/u with PCP or Ortho for steroid injection if not improving -also with pain in left posterior ribs--> rib series negative but suspect intercostal muscle strain from recent strain-continue OTC topical analgesics she already has at home, improving (2) Vomiting: likely 2/2 gastritis from eating 3 days of sausage, onions, and peppers much improved now with pepcid bid-continue x 1 month, avoid spicy foods CTabd/pel negative (3) Vitamin D deficiency: - Chronic - Continue vitamin d supplementation (4) Impaired fasting glucose: - continue to monitor as outpt - Last HGBA1C was 6.2 in July (5) BPPV (benign paroxysmal positional vertigo): Chronic and stable no symptoms currently (6) Allergic rhinitis: chronic and stable continue singular daily Takes OTC nasal spray and antihistamine as needed (7) Hyperlipidemia: Chronic and stable Continue Simvastatin (8) Hypertension: Chronic and stable Continue Atenolol held HCTZ while dehydrated and getting IVFs for vomiting-restart on discharge but with hypercalcemia, consider discontinuing (9) Hypercalcemia: Evidence of hyprcalcemia dating back to 2017 - dc oral calcium supplementation, consider dc HCTZ-defer to PCP - iPTH July 2022 81.8 which is upper limit of normal - Continue vitamin D supplementation f/u PCP Plan Dispo-much improved, stable for dc to home Discharge Exam Constitutional WD/WN, vitals as above Respiratory normal respiratory effort, lungs clear to auscultation Cardiovascular RRR, no murmur, no edema Musculoskeletal +TTP over left greater trochanter and left posterior ribs at T6-7, no ecchymosis or masses Updated Medication List Medication Instructions Recorded Confirmed Type aspirin 81 mg tablet,delayed 81 mg PO DAILY 06/20/19 11/10/22 History release (Monique Low Dose Aspirin) atenolol 25 mg tablet 25 mg PO DAILY #90 tabs 05/09/22 11/10/22 Rx hydrochlorothiazide 50 mg tablet 50 mg PO DAILY #90 tabs 05/09/22 11/10/22 Rx montelukast 10 mg tablet 10 mg PO DAILY #90 tabs 05/09/22 11/10/22 Rx (Singulair) simvastatin 40 mg tablet 40 mg PO QPM #90 tabs 05/09/22 11/10/22 Rx calcium carbonate 600 mg calcium 600 mg PO DAILY 11/10/22 11/10/22 History (1,500 mg) tablet (Calcium) cholecalciferol (vitamin D3) 25 0 mcg PO DAILY 11/10/22 11/10/22 History mcg (1,000 unit) capsule (Vitamin D3) diclofenac sodium 1 % topical gel 2 g EXT QID apply to left hip #100 11/11/22 Rx (Voltaren Arthritis Pain) grams famotidine 20 mg tablet 20 mg PO BID #60 tabs 11/11/22 Rx Hospital Stay Data Consultations 11/10/22 07:41 ED Decision to Admit Stat Diagnostic Imagining Performed 11/10/22 00:07 CT Abd and Pelvis [CT abd pelvis IV con only] Stat Pending Results Patient Have Any Pending Studies at Discharge: No Discharge Instructions Given to Patient (Per Discharging Provider) You were admitted after having nausea and vomiting as well as left hip and flank pain. Your workup was consistent with a bursitis of the left hip and a muscle strain of the muscle between the ribs on the left side. This was treated with topical Voltaren gel and lidocaine patch-you can continue these at home. Please see your Orthopedic surgeon if the left hip pain persists despite doing home stretching exercises as you may need a steroid injection at that point. The nausea and vomiting was likely from inflammation of the stomach from eating too much sausage,onions, and peppers. This was treated with an antacid called pepcid which you should stay on for one month. Your calcium levels remain slightly elevated which could be from your HCTZ medication as well as taking calcium pills. You should stop taking the calcium tablets. Please continue follow up with Dr. Aly on this issue as she is monitoring this. Total Time Total Time Spent Total Time Spent (In Minutes): 35 min Coding Level of Care Code 61640 INP/OBS DISCH >30 MIN Diagnoses Hip pain, left M25.552 Vomiting R11.2 Nausea presence: with nausea Vomiting type: unspecified Vitamin D deficiency E55.9 Impaired fasting glucose R73.01 BPPV (benign paroxysmal positional vertigo) H81.10 Allergic rhinitis J30.9 Hyperlipidemia E78.5 Hypertension I10 Hypercalcemia E83.52
== END 2022-11-11 14:53 | disposition home or self-care (01) ==
LOC: ED 23:04 → 3E 23:04